=== PATIENT | male | born 1960 | race Caucasian/White ===

== ENCOUNTER 2017-02-02 10:21 | Emergency (ER) | payer OTHER ==
[~2017-02-02] VITALS: Ht 175.3 cm; Wt 91.8 kg
[~2017-02-02 10:21] MED LIST: AMLO5TAB2 PO; CYAN250013 PO; GABA300C PO; MULT-516 PO; UBID30CA9 PO
[2017-02-02] MEDS ORDERED: SODIUM CHLORIDE FLUSH 10ML SYR IVF ONE (11:00)
[2017-02-02 11:15] LABS: BLOOD UREA NITROGEN 15 mg/dL (7-18)
[2017-02-02] MEDS ORDERED: SODIUM CHLORIDE 0.9% 1,000 ML IV ONE (11:17)
[2017-02-02 11:20] LABS: IS PT STATUS REG ER OR PRE ER? YES
[2017-02-02] MEDS ORDERED: MORPHINE SULFATE 4 MG/ML, 1ML IVPush PRN (11:30)
[2017-02-02] MEDS ORDERED: ASPIRIN 81 MG TABLET CHEW PO ONE (11:30)
[2017-02-02] MEDS ORDERED: ONDANSETRON 2MG/ML, 2ML IVPush ONE (11:30)
[2017-02-02] MEDS ORDERED: LORazepam 2 MG/ML, 1ML IVPush ONE (11:30)
[2017-02-02] MEDS ORDERED: ASPIRIN 81 MG TABLET CHEW ONE (12:01)
[2017-02-02 12:41] VITALS: BP 145/90
== END 2017-02-02 13:16 | disposition home or self-care (01) ==
LOC: ED 12:29
DX: I10 Essential (primary) hypertension (principal)
CPT/HCPCS: 36415; 71020; 80048; 82040; 83880; 84484; 85025; 85610; 93005